=== PATIENT | female | born 1970 | race Caucasian/White ===

== ENCOUNTER 2017-01-17 01:20 | Emergency (ER) | payer OTHER ==
[~2017-01-17] VITALS: Ht 157.5 cm; Wt 54.4 kg
[2017-01-17 01:33] VITALS: BP 127/82
--- NOTE | 2017-01-17 01:38 | NUR ---
Yohana enriquez in [facility] - 01/17/17 at 0144 by TANISHA PT TAKEN TO BED 4
--- NOTE | 2017-01-17 01:44 | NUR ---
PT TAKEN TO BED 4
--- NOTE | 2017-01-17 01:56 | NUR ---
Dr. Capone evaluating patient at bedside.
--- NOTE | 2017-01-17 02:10 | NUR ---
46Y F PRESENTED IN ER C/O OF VAGINAL DISCHARGE X5 DAYS. DENIES PAIN/DISCOMFORT.
[2017-01-17] MEDS ORDERED: GENTAMICIN 80 MG/2 ML VIAL IM ONE (02:20)
[2017-01-17] MEDS ORDERED: AZITHROMYCIN 250 MG TAB PO ONE (02:20)
[2017-01-17] MEDS ORDERED: GENTAMICIN 80 MG/2 ML VIAL ONE (02:26)
[2017-01-17] MEDS ORDERED: ONDANSETRON 4 MG ODT PO ONE (02:45)
--- NOTE | 2017-01-17 03:15 | NUR ---
Pt c/o severe abd cramping. Notified Dr Tovar.
[2017-01-17] MEDS ORDERED: DICYCLOMINE HCL LIQUID 10 MG/5 ML UDC PO ONE (03:20)
[2017-01-17] MEDS ORDERED: ONDANSETRON 4 MG/2 ML VIAL IVP ONE (03:25)
[2017-01-17 04:38] VITALS: BP 108/78
--- NOTE | 2017-01-17 04:38 | NUR ---
PT INSTRUCTED OF DISCHARGE TO HOME BUT LEFT WITHOUT SIGNING DISCHARGE PAPERS.
[2017-01-19 06:59] LABS: CHLAMYDIA TRACHOMATIS AMP DNA Negative (Negative)
== END 2017-01-17 04:38 | disposition home or self-care (01) ==
LOC: MED 01:20
DX: A54.9 Gonococcal infection, unspecified (principal); F15.10 Other stimulant abuse, uncomplicated; J45.909 Unspecified asthma, uncomplicated; F41.9 Anxiety disorder, unspecified; F17.200 Nicotine dependence, unspecified, uncomplicated; F32.9 Major depressive disorder, single episode, unspecified; Z88.0 Allergy status to penicillin
CPT/HCPCS: 36415; 81025; 96372; 99283; J1580; J2405; S0119; 87491

== ENCOUNTER 2019-07-31 06:05 | Emergency (ER) | payer MEDICAID, OTHER ==
[~2019-07-31] VITALS: Ht 157.5 cm; Wt 59.0 kg
--- NOTE | 2019-07-31 06:15 | NUR ---
PT TAKEN TO BED 5
[2019-07-31 06:16] VITALS: BP 131/71
--- NOTE | 2019-07-31 06:20 | NUR ---
49 Y/O FEMALE C/O URINARY BURNING, HESITENCY, AND FREQUENCY. PT STATES SUPRAPUBIC PAIN W/ WHITE VAGINAL DISCHARGE W/ "FISHY" ODOR X 1 WEEK. DENIES HEMATURIA. PT AFEBRILE AT THIS TIME. DENIES N/V/D. ABD SOFT, ROUND, AND TENDER. PT SITTING IN BED CALM AND PLEASANT, RR EVEN AND UNLABORED. VSS. MEDHX: DENIES ALLERGIES: NKA
--- NOTE | 2019-07-31 06:31 | NUR ---
Dr. Macias examining patient.
[2019-07-31] MEDS ORDERED: PHENAZOPYRIDINE 100 MG TAB PO ONE (06:40)
[2019-07-31] MEDS ORDERED: SULFAMETH/TRIMETH DS 800/160MG 1 TAB PO ONE (06:40)
--- NOTE | 2019-07-31 06:48 | NUR ---
PT STATES SHE WANTS TO BE TESTED FOR STDS, DR SMITH MADE AWARE.
[2019-07-31] MEDS ORDERED: AZITHROMYCIN 250 MG TAB PO ONE (06:50)
[2019-07-31] MEDS ORDERED: cefTRIAXone 250 MG in LIDOCAINE MPF 1% 0.9 ML IM ONE (06:50)
[2019-07-31] MEDS ORDERED: cefTRIAXone 250 MG VIAL ONE (06:51)
[2019-07-31] MEDS ORDERED: LIDOCAINE MPF 1% 5 ML ONE (06:52)
[2019-07-31 07:06] VITALS: BP 131/71
--- NOTE | 2019-07-31 07:06 | NUR ---
Patient discharged with v/s stable. Written and verbal after care instructions given and explained. Patient alert, oriented and verbalized understanding of instructions. Ambulatory with steady gait. All questions addressed prior to discharge. ID band removed. Patient advised to follow up with PMD. Rx of PYRIDIUM AND BACTRIM given. Patient educated on indication of medication including possible reaction and side effects. Opportunity to ask questions provided and answered.
[2019-08-03 07:06] LABS: CHLAMYDIA TRACHOMATIS AMP DNA Negative (Negative)
== END 2019-07-31 07:06 | disposition home or self-care (01) ==
LOC: MED 06:05
DX: N89.8 Other specified noninflammatory disorders of vagina (principal); N39.0 Urinary tract infection, site not specified; I10 Essential (primary) hypertension; J45.909 Unspecified asthma, uncomplicated; Z88.0 Allergy status to penicillin
CPT/HCPCS: 36415; 81002; 81025; 87491; 96372; 99284; J0696; J2001

== ENCOUNTER 2019-08-21 07:24 | Emergency (ER) | payer MEDICAID, OTHER ==
[~2019-08-21] VITALS: Ht 157.5 cm; Wt 59.0 kg
[2019-08-21 07:33] VITALS: BP 144/87
--- NOTE | 2019-08-21 07:35 | NUR ---
URINE CUP HANDED TO PT FOR SAMPLE
--- NOTE | 2019-08-21 07:35 | NUR ---
PT AMBULATED TO ER BED 12
--- NOTE | 2019-08-21 07:42 | NUR ---
49/F TO ED C/O PERSISTANT VAGINAL DISCHARGE AND ODOR. DENIES ANY DIFFICULTY WITH URINATION. REPORTS DISCHARGE CLEAR IN COLOR AND PAINLESS. IN BED FOR MSE.
--- NOTE | 2019-08-21 08:10 | NUR ---
DR FAGAN AND JUAN MANUEL RN AT BEDSIDE FOR PELVIC EXAM.
--- NOTE | 2019-08-21 08:18 | NUR ---
PELVIC EXAM COMPLETED. BUSTER ZAMBRANO CHAPERONED PROCDURE.
[2019-08-21 08:30] LABS: APPEARANCE,URINE SL CLOUDY (CLEAR); BILIRUBIN,URINE NEGATIVE (NEGATIVE); BLOOD, URINE NEGATIVE (NEGATIVE); COLOR,URINE YELLOW (YELLOW); LEUKOCYTE ESTERASE ,URINE 3+ (NEGATIVE); NITRITE, URINE NEGATIVE (NEGATIVE); UGLUCOSE NEGATIVE (NEGATIVE)
[2019-08-21 08:48] LABS: RBC,URINE 0-5 /HPF (0-5)
--- NOTE | 2019-08-21 09:23 | NUR ---
Patient discharged with v/s stable. Written and verbal after care instructions given and explained. Patient alert, oriented and verbalized understanding of instructions. Ambulatory with steady gait. All questions addressed prior to discharge. ID band removed. Patient advised to follow up with PMD. Rx of FLAGYL given. Patient educated on indication of medication including possible reaction and side effects. Opportunity to ask questions provided and answered.
[2019-08-21 09:24] VITALS: BP 138/76
[2019-08-23 06:08] LABS: CHLAMYDIA TRACHOMATIS AMP DNA Negative (Negative)
== END 2019-08-21 09:23 | disposition home or self-care (01) ==
LOC: MED 07:24
DX: N76.0 Acute vaginitis (principal); R03.0 Elevated blood-pressure reading, without diagnosis of hypertension; J45.909 Unspecified asthma, uncomplicated; F17.200 Nicotine dependence, unspecified, uncomplicated; Z88.0 Allergy status to penicillin; Z90.49 Acquired absence of other specified parts of digestive tract
CPT/HCPCS: 36415; 81001; 81025; 87070; 87086; 87205; 87210; 87491; 99283

== ENCOUNTER 2021-01-29 23:28 | Emergency (ER) | payer OTHER ==
[~2021-01-29] VITALS: Ht 157.5 cm; Wt 59.0 kg
[2021-01-29 23:39] VITALS: BP 133/88
--- NOTE | 2021-01-30 00:15 | NUR ---
50 Y/O FEMALE PATIENT PRESENTS TO ED WITH GONORRHEA . PT STATES "I HAVE BEEN HAVING LOWER ABDOMINAL PAIN, I WAS DIAGNOSED WITH GONORRHEA BEFORE, AND I THINK I HAVE IT AGAIN." . DENIES N/V/D; SKIN IS PINK/WARM/DRY; AAOX4 WITH EVEN AND STEADY GAIT; LUNGS CLEAR BL; HR EVEN AND REGULAR; PT DENIES ANY FEVER, CP, SOB, OR COUGH AT THIS TIME; PATIENT STATES PAIN OF 7/10 AT THIS TIME; VSS; PATIENT POSITIONED FOR COMFORT; HOB ELEVATED; BEDRAILS UP X2; BED DOWN. ER MD MADE AWARE OF PT STATUS. NKA PMH: GONORRHEA
[2021-01-30 00:23] LABS: BASOPHILS % (AUTO) 0.4 % (0.0-2.0); EOSINOPHILS # (AUTO) 0.3 K/uL (0-0.4); HEMOGLOBIN 13.4 g/dL (12.0-16.0); LYMPHOCYTES # (AUTO) 2.2 K/uL (2.5-16.5); MEAN CORPUSCULAR HEMOGLOBIN 31 pg (27-31); MEAN CORPUSCULAR HGB CONC 33 g/dL (33-37); MONOCYTES # (AUTO) 1.2 K/uL (0.8-1.0); MONOCYTES % (AUTO) 10.3 % (1.7-9.3); NEUTROPHILS # (AUTO) 7.7 K/uL (1.8-7.7); NEUTROPHILS % (AUTO) 67.3 % (42.2-75.2); PLATELET COUNT (AUTO) 294 K/uL (140-450); RED CELL DISTRIBUTION WIDTH 14.2 % (11.6-13.7); WHITE BLOOD COUNT (AUTO) 11.5 K/uL (4.8-10.8)
[2021-01-30 00:36] LABS: ALBUMIN 3.4 g/dL (3.4-5.0); ANION GAP 15.3 (8-16); CREATININE 0.8 mg/dL (0.6-1.3); POTASSIUM 4.3 mmol/L (3.5-5.1); TOTAL BILIRUBIN 0.2 mg/dL (0.0-1.0)
[2021-01-30] MEDS ORDERED: AZITHROMYCIN 250 MG TAB PO ONE (01:20)
[2021-01-30] MEDS ORDERED: NACL 0.9% 1,000 ML IV ONE (01:20)
[2021-01-30] MEDS ORDERED: KETOROLAC 30 MG/ML VIAL IVP ONE (01:20)
[2021-01-30 01:25] LABS: APPEARANCE,URINE CLEAR (CLEAR); BILIRUBIN,URINE NEGATIVE (NEGATIVE); BLOOD, URINE TRACE-I (NEGATIVE); COLOR,URINE YELLOW (YELLOW); LEUKOCYTE ESTERASE ,URINE 1+ (NEGATIVE); NITRITE, URINE NEGATIVE (NEGATIVE); UGLUCOSE NEGATIVE (NEGATIVE)
[2021-01-30] MEDS ORDERED: cefTRIAXone 1,000 MG VIAL ONE (01:26)
[2021-01-30 01:33] LABS: RBC,URINE 0-5 /HPF (0-5)
[2021-01-30] MEDS ORDERED: CEPH-588 PO (03:44)
[2021-01-30] MEDS ORDERED: MAGNESIUM CITRATE 300 ML BTL PO ONE (03:45)
[2021-01-30 04:14] VITALS: BP 133/88
--- NOTE | 2021-01-30 04:15 | NUR ---
Patient discharged with v/s stable. Written and verbal after care instructions given and explained. Patient alert, oriented and verbalized understanding of instructions. Ambulatory with steady gait. All questions addressed prior to discharge. ID band removed. Patient advised to follow up with PMD. Rx of CEPHLEX given. Patient educated on indication of medication including possible reaction and side effects. Opportunity to ask questions provided and answered.
--- NOTE | 2021-02-01 13:07 | NUR ---
LATE ENTRY- LAB RESULTS CAME BACK POSITIVE FOR GONORRHEA. ATTEMPTED TO CALL PT, UNABLE TO LEAVE MESSAGE, MAILBOX FULL. TREATMENT GIVEN IS APPROPRIATE.
[2021-02-03] MEDS ORDERED: FLUC150T PO (08:34)
[2021-02-03] MEDS ORDERED: CIPR500T4 PO (08:34)
--- NOTE | 2021-02-03 10:51 | NUR ---
LATE ENTRY--- Urine culture results received from lab. Results shown to Dr. Rogel. New prescription for Cipro and Diflucan received. Patient called to notify about changes in new medications. Copy placed in C&S folder.
== END 2021-01-30 04:15 | disposition home or self-care (01) ==
LOC: MED 23:28
DX: N39.0 Urinary tract infection, site not specified (principal); J45.909 Unspecified asthma, uncomplicated; Z88.0 Allergy status to penicillin; Z79.899 Other long term (current) drug therapy
CPT/HCPCS: 36415; 74177; 80053; 81001; 81025; 85025; 87040; 87086; 87491; 96365; 96375; 99285; J0696; J1885; J7030; Q9967

== ENCOUNTER 2021-02-19 04:12 | Emergency (ER) | payer OTHER ==
[~2021-02-19] VITALS: Ht 157.5 cm; Wt 65.3 kg
[~2021-02-19 04:12] MED LIST: CEPH-588 PO; CIPR500T4 PO; FLUC150T PO
[2021-02-19 04:19] VITALS: BP 127/72
--- NOTE | 2021-02-19 04:23 | NUR ---
PATIENT AMBUIALTED TO RESTROOM TO PROVIDE URINE SAMPLE.
--- NOTE | 2021-02-19 04:30 | NUR ---
PT BIB SELF FOR C/O VAGINAL ODOR/URINARY ODOR. PT REPORTS SHE WAS SEEN 3 WEEKS AGO AND TREATED FOR STD. PT REPORTS COMPLETING FULL DOSE OF TX, BUT "THERES STILL ODOR." PT DENIES PAIN, ITCHING, DISCHARGE, FEVER, CHILLS, N/V/D. MED HX: STD ALLERGIES: PENICILLINS
[2021-02-19 05:04] LABS: APPEARANCE,URINE CLOUDY (CLEAR); BILIRUBIN,URINE NEGATIVE (NEGATIVE); BLOOD, URINE TRACE-I (NEGATIVE); COLOR,URINE YELLOW (YELLOW); LEUKOCYTE ESTERASE ,URINE 1+ (NEGATIVE); NITRITE, URINE NEGATIVE (NEGATIVE); PH,URINE 5.5 (5.0-9.0); UGLUCOSE NEGATIVE (NEGATIVE)
--- NOTE | 2021-02-19 05:15 | NUR ---
Female Investment Sales Assistant accompanied female patient for Pelvic Exam. Wet collected at this time.
[2021-02-19 05:29] LABS: RBC,URINE 0-5 /HPF (0-5)
[2021-02-19] MEDS ORDERED: cefTRIAXone 500 MG in LIDOCAINE MPF 1% 1 ML IM ONE (05:45)
[2021-02-19] MEDS ORDERED: DOXY-565 PO (05:46)
[2021-02-19] MEDS ORDERED: METR500T1 PO (05:46)
[2021-02-19] MEDS ORDERED: cefTRIAXone 500 MG VIAL ONE (05:54)
[2021-02-19] MEDS ORDERED: LIDOCAINE MPF 1% 5 ML ONE (05:56)
--- NOTE | 2021-02-19 06:00 | NUR ---
Patient discharged with v/s stable. Written and verbal after care instructions given and explained. Patient alert, oriented and verbalized understanding of instructions. Ambulatory with steady gait. All questions addressed prior to discharge. ID band removed. Patient advised to follow up with PMD. Rx of DOXYCYCLINE AND FLAGYL given. Patient educated on indication of medication including possible reaction and side effects. Opportunity to ask questions provided and answered.
== END 2021-02-19 06:00 | disposition home or self-care (01) ==
LOC: MED 04:12
DX: N73.9 Female pelvic inflammatory disease, unspecified (principal); N77.1 Vaginitis, vulvitis and vulvovaginitis in diseases classified elsewhere; J45.909 Unspecified asthma, uncomplicated; Z88.0 Allergy status to penicillin; Z79.899 Other long term (current) drug therapy
CPT/HCPCS: 36415; 81001; 81025; 87086; 87210; 87491; 96372; 99283; J0696; J2001

== ENCOUNTER 2021-08-06 00:59 | Emergency (ER) | payer OTHER ==
[~2021-08-06] VITALS: Ht 157.5 cm; Wt 59.0 kg
[~2021-08-06 00:59] MED LIST changes: +DOXY-565 PO; +METR500T1 PO
[2021-08-06 01:17] VITALS: BP 128/86
--- NOTE | 2021-08-06 01:28 | NUR ---
PT EVALUATED BY DR. HOFFMAN.
[2021-08-06] MEDS ORDERED: FLUC150T PO (01:30)
[2021-08-06] MEDS ORDERED: CEPH-588 PO (01:30)
[2021-08-06] MEDS ORDERED: cephALEXin 500 MG CAP PO ONE (01:35)
--- NOTE | 2021-08-06 02:00 | NUR ---
Patient discharged with v/s stable. Written and verbal after care instructions given and explained. Patient alert, oriented and verbalized understanding of instructions. Ambulatory with steady gait. All questions addressed prior to discharge. ID band removed. Patient advised to follow up with PMD. Rx of DIFLUCAN AND KEFLEX given. Patient educated on indication of medication including possible reaction and side effects. Opportunity to ask questions provided and answered.
== END 2021-08-06 02:00 | disposition home or self-care (01) ==
LOC: MED 00:59
DX: T63.301A Toxic effect of unspecified spider venom, accidental (unintentional), initial encounter (principal); J45.909 Unspecified asthma, uncomplicated; Z88.0 Allergy status to penicillin; Z79.899 Other long term (current) drug therapy; Y92.89 Other specified places as the place of occurrence of the external cause
CPT/HCPCS: 90471; 90715; 99283

== ENCOUNTER 2021-11-27 01:40 | Emergency (ER) | payer OTHER ==
[~2021-11-27] VITALS: Ht 152.4 cm; Wt 64.9 kg
[2021-11-27 01:45] VITALS: BP 130/91
--- NOTE | 2021-11-27 02:00 | NUR ---
PATIENT BIB SELF FOR C/O VAGINAL DISCHARGE X 1 WEEK. PATIENT DENIES ANY PAIN BUT STATES FOUL ODOR AND YELLOW, THIN DISCHARGE FROM VAGINA. PATIENT WENT TO UC AND RECIVING ABT RX FOR UTI. UNABLE TO GIVE UA AT THIS TIME. WATER GIVEN MEDHX: DENIES ALLERGIES: GIULIANO
--- NOTE | 2021-11-27 02:00 | NUR ---
PT TAKEN TO ER BED 09
--- NOTE | 2021-11-27 02:02 | NUR ---
DR PENALOZA AT BEDSIDE FOR EXAM
[2021-11-27] MEDS ORDERED: DOXYCYCLINE 100 MG CAP PO SCH (02:10)
[2021-11-27] MEDS ORDERED: cefTRIAXone 500 MG in LIDOCAINE MPF 1% 1 ML IM ONE (02:10)
--- NOTE | 2021-11-27 02:10 | NUR ---
WET MOUNT OBTAINED AND SENT TO LAB
[2021-11-27] MEDS ORDERED: cefTRIAXone 500 MG VIAL ONE (02:25)
[2021-11-27] MEDS ORDERED: LIDOCAINE MPF 1% 5 ML ONE (02:25)
[2021-11-27] MEDS ORDERED: DOXY-487 PO ×2 (02:28→04:01)
[2021-11-27] MEDS ORDERED: METR-435 PO ×2 (02:50→04:01)
[2021-11-27 02:55] VITALS: BP 130/91
--- NOTE | 2021-11-27 02:55 | NUR ---
Patient discharged with v/s stable. Written and verbal after care instructions given and explained. Patient alert, oriented and verbalized understanding of instructions. Ambulatory with steady gait. All questions addressed prior to discharge. ID band removed. Patient advised to follow up with PMD. Rx of DOXYCYCLINE, METRONIDAZOLE given. Patient educated on indication of medication including possible reaction and side effects. Opportunity to ask questions provided and answered.
== END 2021-11-27 02:55 | disposition home or self-care (01) ==
LOC: MED 01:40
DX: N76.0 Acute vaginitis (principal); B96.89 Other specified bacterial agents as the cause of diseases classified elsewhere; J45.909 Unspecified asthma, uncomplicated; F17.200 Nicotine dependence, unspecified, uncomplicated; Z79.2 Long term (current) use of antibiotics; Z88.0 Allergy status to penicillin
CPT/HCPCS: 81002; 87210; 96372; 99283; J0696; J2001; 36415; 87491

== ENCOUNTER 2022-03-04 18:29 | Emergency (ER) | payer OTHER ==
[~2022-03-04 18:29] MED LIST changes: -CEPH-588 PO; -CIPR500T4 PO; +DOXY-487 PO; -DOXY-565 PO; -FLUC150T PO; +METR-435 PO; -METR500T1 PO
--- NOTE | 2022-03-04 18:57 | NUR ---
attempted to call pt. pt not in lobby nor outside
--- NOTE | 2022-03-04 19:15 | NUR ---
PATIENT LEFT WITHOUT BEING SEEN BY DR. DONOVAN. NO FURTHER CARE PROVIDED FOR PATIENT.
--- NOTE | 2022-03-04 19:15 | NUR ---
PATIENT CALL TO TRIAGE , NO RESPONSE
--- NOTE | 2022-03-04 19:20 | NUR ---
CALLED FOR THE SECOND TIME NO RESPONSE
--- NOTE | 2022-03-04 19:25 | NUR ---
CALLED FOR THE THIRD TIME NO RESPONSE
== END 2022-03-04 18:57 | disposition left against medical advice (07) ==
LOC: MED 18:29
DX: M79.671 Pain in right foot (principal); Z53.21 Procedure and treatment not carried out due to patient leaving prior to being seen by health care provider

== ENCOUNTER 2022-11-21 00:13 | Emergency (ER) | payer OTHER ==
[~2022-11-21] VITALS: Ht 157.5 cm; Wt 64.4 kg
[2022-11-21 00:28] VITALS: BP 132/76
--- NOTE | 2022-11-21 00:37 | NUR ---
COVID-19 and flu swabs collected and sent to lab.
[2022-11-21 00:50] VITALS: BP 132/76
--- NOTE | 2022-11-21 01:15 | NUR ---
PATIENT LEFT WITHOUT BEING SEEN BY DR. Baker. NO FURTHER CARE PROVIDED FOR PATIENT.
--- NOTE | 2022-11-21 01:15 | NUR ---
Called no show in lobby or outside.
== END 2022-11-21 01:15 | disposition left against medical advice (07) ==
LOC: MED 00:13
DX: M79.18 Myalgia, other site (principal); R05.9 Cough, unspecified; Z20.822 Contact with and (suspected) exposure to COVID-19; Z53.21 Procedure and treatment not carried out due to patient leaving prior to being seen by health care provider
CPT/HCPCS: 99281

== ENCOUNTER 2023-01-17 03:46 | Emergency (ER) | payer OTHER ==
[~2023-01-17] VITALS: Ht 157.5 cm; Wt 61.2 kg
[2023-01-17 03:54] VITALS: BP 122/94
--- NOTE | 2023-01-17 04:14 | NUR ---
Patient being evaluated by PRADEEP at bedside.
[2023-01-17] MEDS ORDERED: DIPH25TA53 PO (04:21)
[2023-01-17] MEDS ORDERED: PRED20TA5 PO (04:21)
[2023-01-17 04:37] VITALS: BP 122/94
--- NOTE | 2023-01-17 04:37 | NUR ---
Patient discharged with v/s stable. Written and verbal after care instructions given and explained. Patient alert, oriented and verbalized understanding of instructions. All questions addressed prior to discharge. ID band removed. Patient advised to follow up with PMD. Rx sent to preferred pharmacy. Patient educated on indication of medication including possible reaction and side effects. Opportunity to ask questions provided and answered.
[2023-01-18] MEDS ORDERED: HYD1C TP (11:20)
[2023-01-18] MEDS ORDERED: CEPH-588 PO (11:20)
[2023-01-18] MEDS ORDERED: DOXY-690 PO (11:20)
[2023-01-18] MEDS ORDERED: METR-435 PO (20:31)
== END 2023-01-17 04:37 | disposition home or self-care (01) ==
LOC: MED 03:46
DX: R21 Rash and other nonspecific skin eruption (principal); F17.200 Nicotine dependence, unspecified, uncomplicated; J45.909 Unspecified asthma, uncomplicated; Z79.899 Other long term (current) drug therapy; Z88.0 Allergy status to penicillin
CPT/HCPCS: 99281

== ENCOUNTER 2023-01-18 08:36 | Emergency (ER) | payer OTHER ==
[~2023-01-18] VITALS: Ht 157.5 cm; Wt 59.0 kg
[~2023-01-18 08:36] MED LIST changes: +DIPH25TA53 PO; +PRED20TA5 PO
[2023-01-18 08:37] VITALS: BP 150/60
--- NOTE | 2023-01-18 08:56 | NUR ---
AMBULATED TO BED 12 WITH STEADY GAIT
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
--- NOTE | 2023-01-18 09:17 | NUR ---
URINE WALKED TO LAB, HANDED TO JENI IGLLESPIE TECH
[2023-01-18 09:25] LABS: APPEARANCE,URINE CLEAR (CLEAR); BILIRUBIN,URINE NEGATIVE (NEGATIVE); BLOOD, URINE TRACE-I (NEGATIVE); COLOR,URINE YELLOW (YELLOW); LEUKOCYTE ESTERASE ,URINE TRACE (NEGATIVE); NITRITE, URINE NEGATIVE (NEGATIVE); PH,URINE 5.5 (5.0-9.0); UGLUCOSE NEGATIVE (NEGATIVE)
[2023-01-18] MEDS ORDERED: DOXYCYCLINE 100 MG CAP PO SCH (09:40)
--- NOTE | 2023-01-18 09:44 | NUR ---
Female Shoe Sewing Machine Operator And Tender accompanied female patient for Pelvic Exam.
[2023-01-18] MEDS ORDERED: cefTRIAXone 500 MG in LIDOCAINE MPF 1% 1 ML IM ONE (09:45)
[2023-01-18] MEDS ORDERED: cefTRIAXone 500 MG VIAL ONE (09:48)
[2023-01-18] MEDS ORDERED: LIDOCAINE MPF 1% 5 ML ONE (09:49)
--- NOTE | 2023-01-18 10:39 | NUR ---
PT STATES THAT SHE WANTS TO WAIT IN THE LOBBY, NO IV, NO ACUTE DISTRESS NOTED, PT WALKED OUT OF ROOM 12 TO THE LOBBY
[2023-01-18] MEDS ORDERED: CEPH-588 PO (11:20)
[2023-01-18] MEDS ORDERED: DOXY-690 PO (11:20)
[2023-01-18] MEDS ORDERED: HYD1C TP (11:20)
[2023-01-18] MEDS ORDERED: METR-435 PO (20:31)
== END 2023-01-18 11:28 | disposition home or self-care (01) ==
LOC: MED 08:36
DX: N76.0 Acute vaginitis (principal); N39.0 Urinary tract infection, site not specified; F17.210 Nicotine dependence, cigarettes, uncomplicated; Z71.6 Tobacco abuse counseling; E03.9 Hypothyroidism, unspecified; F32.A Depression, unspecified; Z79.899 Other long term (current) drug therapy; Z88.0 Allergy status to penicillin; Z98.890 Other specified postprocedural states
CPT/HCPCS: 81003; 81025; 87110; 87210; 87299; 87491; 96372; 99284; J0696; J2001; Q0163

== ENCOUNTER 2023-07-22 17:16 | Emergency (ER) | payer MEDICAID, OTHER ==
[~2023-07-22] VITALS: Ht 157.5 cm; Wt 63.5 kg
[~2023-07-22 17:16] MED LIST changes: +CEPH-588 PO; +DOXY-690 PO; +HYD1C TP
[2023-07-22 18:58] VITALS: BP 128/81; PULSE 97; RESP 18; TEMP 97.9; O2SAT 100
[2023-07-22] MEDS ORDERED: KETOROLAC 30 MG/ML VIAL IM ONE (19:55)
[2023-07-22] MEDS ORDERED: HYDROcodone/APAP 5/325 MG 1 TAB TAB PO ONE (20:45)
[2023-07-22] MEDS ORDERED: IBUP-2213 PO (21:04)
[2023-07-22] MEDS ORDERED: ACET-8905 PO (21:04)
[2023-07-22] MEDS ORDERED: KETOROLAC 30 MG/ML VIAL ONE (21:08)
== END 2023-07-22 21:18 | disposition home or self-care (01) ==
LOC: MED 17:16
DX: S92.331A Displaced fracture of third metatarsal bone, right foot, initial encounter for closed fracture (principal); S92.341A Displaced fracture of fourth metatarsal bone, right foot, initial encounter for closed fracture; R03.0 Elevated blood-pressure reading, without diagnosis of hypertension; E03.9 Hypothyroidism, unspecified; Z88.0 Allergy status to penicillin; Z79.899 Other long term (current) drug therapy; X58.XXXA Exposure to other specified factors, initial encounter; Y93.89 Activity, other specified; Y92.89 Other specified places as the place of occurrence of the external cause; Y99.8 Other external cause status
CPT/HCPCS: 29515; 73610; 73630; 96372; 99284; J1885

== ENCOUNTER 2023-08-07 08:02 | Emergency (ER) | payer MEDICAID ==
[~2023-08-07] VITALS: Ht 157.5 cm; Wt 61.2 kg
[~2023-08-07 08:02] MED LIST changes: +ACET-8905 PO; +IBUP-2213 PO
[2023-08-07 08:13] VITALS: BP 123/81; PULSE 97; RESP 19; TEMP 97.8; O2SAT 100
[2023-08-07] MEDS ORDERED: DIPHENOXYLATE /ATROPINE 2.5 MG TAB PO ONE (08:30)
[2023-08-07] MEDS ORDERED: NACL 0.9% 1,000 ML IV SCH (08:30)
[2023-08-07] MEDS ORDERED: ONDANSETRON 4 MG/2 ML VIAL IVP ONE (08:30)
[2023-08-07 08:57] LABS: BASOPHILS % (AUTO) 0.2 % (0.0-2.0); EOSINOPHILS # (AUTO) 0.2 K/uL (0-0.4); EOSINOPHILS % (AUTO) 2.8 % (0.0-4.0); HEMATOCRIT 43.2 % (36-48); HEMOGLOBIN 14.9 g/dL (12.0-16.0); LYMPHOCYTES # (AUTO) 0.5 K/uL (2.5-16.5); MEAN CORPUSCULAR HEMOGLOBIN 32 pg (27-31); MEAN CORPUSCULAR HGB CONC 35 g/dL (33-37); MEAN CORPUSCULAR VOLUME 92.1 fL (80-94); MONOCYTES # (AUTO) 0.3 K/uL (0.8-1.0); MONOCYTES % (AUTO) 3.7 % (1.7-9.3); NEUTROPHILS # (AUTO) 7.3 K/uL (1.8-7.7); NEUTROPHILS % (AUTO) 87.3 % (42.2-75.2); PLATELET COUNT (AUTO) 253 K/uL (140-450); RED BLOOD CELL COUNT(AUTO) 4.68 MIL/uL (4.20-5.40); RED CELL DISTRIBUTION WIDTH 13.3 % (11.6-13.7); WHITE BLOOD COUNT (AUTO) 8.4 K/uL (4.8-10.8)
[2023-08-07 09:10] LABS: ANION GAP 10.7 (8-16); CALCIUM 8.7 mg/dL (8.5-10.1); CARBON DIOXIDE 25.8 mmol/L (21-32); CREATININE 0.7 mg/dL (0.6-1.3); POTASSIUM 4.5 mmol/L (3.5-5.1)
[2023-08-07 09:11] VITALS: BP 112/72; PULSE 84; RESP 15; TEMP 97.8
[2023-08-07 09:12] VITALS: O2SAT 100
[2023-08-07 09:14] LABS: ALBUMIN 3.1 g/dL (3.4-5.0); BILIRUBIN,DIRECT 0.1 mg/dL (0.0-0.3); TOTAL BILIRUBIN 0.9 mg/dL (0.0-1.0); TOTAL PROTEIN, SERUM 7.6 g/dL (6.4-8.2)
[2023-08-07] MEDS ORDERED: ONDA-188 PO (10:27)
[2023-08-07] MEDS ORDERED: LOPE-143 PO (10:27)
== END 2023-08-07 10:38 | disposition home or self-care (01) ==
LOC: MED 08:02
DX: R19.7 Diarrhea, unspecified (principal); F17.200 Nicotine dependence, unspecified, uncomplicated; Z71.6 Tobacco abuse counseling; Z79.899 Other long term (current) drug therapy
CPT/HCPCS: 36415; 80048; 80076; 81025; 83690; 85025; 96361; 96374; 99283; J2405; J7030